=== PATIENT | female | born 1985 | race African-American/Black ===

== ENCOUNTER 2016-08-06 11:37 | Emergency (ER) | payer OTHER ==
[~2016-08-06] VITALS: Ht 170.2 cm; Wt 105.0 kg
[~2016-08-06 11:37] MED LIST: ANUCORT-HC25 MG RE; CIPRO500 MG OR; ERY-TAB333 MG OR; FIORICET PO; LIDOCAINE VISC20 ML EX; LORTAB 5 OR; MULTIVITAMI1 OR; NAPROSYN500 MG OR; NO MEDS; PRENATA3 PO
[2016-08-06] MEDS ORDERED: OB COMPLETE/DHA PO (11:50)
[2016-08-06 13:03] LABS: HEMATOCRIT 38.4 % (37.0-47.0); HEMOGLOBIN 13.4 g/dl (12.0-16.0); IMMATURE GRANULOCYTES 0.3 % (0.0-1.0); MEAN CELL VOLUME 90.1 fL CALC (80.0-100.0); MEAN CORPUSCULAR HGB 31.5 pG CALC (26.0-32.0); MEAN CORPUSCULAR HGB CONC 34.9 g/L CALC (32.0-36.0); NEUT# 5.1 thou/uL (2.00-7.15); RED BLOOD COUNT 4.26 mill/uL (4.20-5.60)
[2016-08-06 13:21] LABS: ALBUMIN 4.4 g/dL (3.2-5.0); ALKALINE PHOSPHATASE 74 u/l (38-126); ANION GAP 16 (6-22 (CALC)); BILIRUBIN, TOTAL 1.2 mg/dL (0.0-1.4); BUN 7 mg/dL (7-17); BUN/CREATININE RATIO 11 (12-20 (CALC)); CALCIUM 9.2 mg/dL (8.4-10.2); CARBON DIOXIDE 22 mmol/l (22-30); CHLORIDE 101 mmol/l (95-108); CREATININE 0.6 mg/dL (0.5-1.0); GFR > 60 ML/MIN (>=60 (CALC)); GFR FOR AFR.AMER. > 60 ML/MIN (>=60 (CALC)); GLUCOSE 80 mg/dL (65-105); POTASSIUM 3.6 mmol/l (3.5-5.1); SGOT/AST 44 u/l (14-36); SGPT/ALT 69 u/l (9-52); SODIUM 135 mmol/l (137-146); TOTAL PROTEIN 7.6 g/dL (6.3-8.2)
[2016-08-06] MEDS ORDERED: ZOFRAN ODT4 MG PO (13:38)
[2016-08-06 14:53] VITALS: BP 111/69
== END 2016-08-06 14:53 | disposition home or self-care (01) | DRG 781 ==
LOC: ED 11:37
PROVIDERS: Emergency Medicine
DX: O21.0 Mild hyperemesis gravidarum (principal); Z3A.00 Weeks of gestation of pregnancy not specified

== ENCOUNTER 2017-02-14 10:25 | Observation (INO) | payer MEDICAID ==
[~2017-02-14] VITALS: Ht 167.6 cm; Wt 95.3 kg
[2017-02-14] VITALS (13 sets, daily range): BP systolic 98–142; BP diastolic 60–83
--- NOTE | 2017-02-14 09:55 | NUR ---
PATIENT TO UNIT FROM HOME VIA ER REGISTRATION, UNACCOMPANIED. WEIGHT AND HEIGHT OBTAINED. ESCORTED TO ROOM 253. CLEAN CATCH SPECIMEN OF URINE EXPLAINED AND OBTAINED. EFM COMMENCED. GIVES HISTORY IN PART A. DENIES LEAKING OF AMNIOTIC FLUID AND VAGINAL BLEEDING. MD ON UNIT NOTIFIED OF PATIENTS ARRIVAL.
[~2017-02-14 10:25] MED LIST changes: +OB COMPLETE/DHA PO; +ZOFRAN ODT4 MG PO
[2017-02-14 10:28] LABS: URINE BILIRUBIN - DIPSTICK NEGATIVE (NEGATIVE); URINE BLOOD DIPSTICK NEGATIVE (NEGATIVE); URINE COLOR YELLOW; URINE GLUCOSE - DIPSTICK NEGATIVE (NEGATIVE); URINE KETONE TRACE mg/dL (NEGATIVE); URINE LEUK ESTERASE NEGATIVE (NEGATIVE); URINE NITRITE - DIPSTICK NEGATIVE (Negative); URINE PROTEIN - DIPSTICK NEGATIVE (NEG-TRACE); URINE UROBILINOGEN - DIPSTICK 0.2 E.U./dL (0.2)
[2017-02-14 10:33] LABS: BARBITURATES NEGATIVE (NEGATIVE); COCAINE NEGATIVE (NEGATIVE); METHADONE NEGATIVE (NEGATIVE); OXCYCODONE NEGATIVE (NEGATIVE); TETRAHYDROCANNABIONOL NEGATIVE (NEGATIVE); TRICYLIC ANTIDEPRESSANTS NEGATIVE (NEGATIVE); URINE CLARITY CLEAR
--- NOTE | 2017-02-14 10:35 | NUR ---
SVE DONE BY DR MISHRA CHARTED. NEW ORDERS RECEIVED TO BE COMMENCED.
[2017-02-14] MEDS ORDERED: VALTREX500 MG PO (11:23)
--- NOTE | 2017-02-14 11:50 | NUR ---
IV ACCESS GAINED IN LT HAND. BLOOD DRAWN FOR LABS ORDERED.
[2017-02-14 12:35] LABS: HEMATOCRIT 37.4 % (37.0-47.0); HEMOGLOBIN 12.9 g/dl (12.0-16.0); IMMATURE GRANULOCYTES 0.3 % (0.0-1.0); MEAN CELL VOLUME 90.8 fL CALC (80.0-100.0); MEAN CORPUSCULAR HGB 31.3 pG CALC (26.0-32.0); MEAN CORPUSCULAR HGB CONC 34.5 g/L CALC (32.0-36.0); NEUT# 4.44 thou/uL (2.00-7.15); RED BLOOD COUNT 4.12 mill/uL (4.20-5.60); RED CELL DISTRI WIDTH 13.1 % (11.5-15.5)
[2017-02-14 12:59] LABS: ALKALINE PHOSPHATASE 313 u/l (38-126); ANION GAP 16 (6-22 (CALC)); BILIRUBIN, TOTAL 1.2 mg/dL (0.0-1.4); BUN 4 mg/dL (7-17); BUN/CREATININE RATIO 7 (12-20 (CALC)); CALCIUM 9.6 mg/dL (8.4-10.2); CARBON DIOXIDE 17 mmol/l (22-30); CHLORIDE 109 mmol/l (95-108); CREATININE 0.6 mg/dL (0.5-1.0); GFR > 60 ML/MIN (>=60 (CALC)); GFR FOR AFR.AMER. > 60 ML/MIN (>=60 (CALC)); GLUCOSE 73 mg/dL (65-105); POTASSIUM 4.2 mmol/l (3.5-5.1); SGOT/AST 37 u/l (14-36); SGPT/ALT 43 u/l (9-52); SODIUM 138 mmol/l (137-146); TOTAL PROTEIN 7.3 g/dL (6.3-8.2)
--- NOTE | 2017-02-14 13:17 | NUR ---
BACK TO BED. EFM RECOMMENCED.
--- NOTE | 2017-02-14 14:12 | NUR ---
OFF MONITOR TO AMBULATE
--- NOTE | 2017-02-14 15:10 | NUR ---
US REPORT FROM 08/10/16 SEEN ON CHART WITH [facility] OF 03/04/17 AT [address] MISHRA IN OFFICE MADE AWARE OF SAME. WILL COME TO SEE PATIENT.
--- NOTE | 2017-02-14 16:35 | NUR ---
ambulating in hallway. no concerns.
--- NOTE | 2017-02-14 18:55 | NUR ---
DR MISHRA HERE. SVE SAME LAST. NEW ORDERS RECEIVED. PATIENT TOLERATING LABOR. END OF SHIFT REPORT READY.
--- NOTE | 2017-02-14 19:15 | NUR ---
INTRODUCED SELF TO PT. ASSESSMENT COMPLETED- WNL. PT RESTING IN BED. CHEERFUL AND TALKATIVE. SIGNIFICANT OTHER AT BEDSIDE. PT REQUESTING FOOD. DR. MISHRA STATES THAT PT COULD EAT TONIGHT. CLEAR LIQUIDS PROVIDED WILL ASSESS CONTRACTIONS FREQUENCY TO SEE IF CAN PROVIDE REGULAR FOOD. PT DENIES ANY NEEDS. ENCOURAGED PT TO CALL WITH ANY NEEDS OR CONCERNS.
--- NOTE | 2017-02-14 20:02 | NUR ---
REGULAR MEAL TRAY PROVIDED. PT WATCHING TELEVISION. CONTRACTIONS PALPATE MODERATE, BUT ARE IRREGULAR. VISTARIL PROVIDED PER ORDERS. PT GIVEN BLANKET. PT DENIES ANY OTHER NEEDS. ENCOURAGED PT TO CALL WITH ANY NEEDS OR CONCERNS.
--- NOTE | 2017-02-14 21:08 | NUR ---
PT RESTING QUIETLY IN BED. PT OOB TO BR TO VOID. THEN TALKING ON PHONE WITH SIGNIFICANT OTHER. PT STATES WHEN CONTRACTONS COME THEY ARE STRONG. PALPATE MODERATE. EFM DISCONTINUED FOR INTERMITTENT MONITORING PER ORDERS. EFM REACTIVE. ENCOURAGED PT TO CALL IF CONTRACTIONS GET CLOSER AND STRONGER OR IF WATER BREAKS. WILL CONTINUE TO MONITOR.
--- NOTE | 2017-02-15 | NUR ---
PT RESTING QUIETLY IN BED WITH EYES CLOSED. EFM APPLIED. PT DENIES ANY NEEDS. ENCOURAGED PT TO CALL WITH NEEDS.
[2017-02-15 00:30] VITALS: BP 121/64
--- NOTE | 2017-02-15 04:38 | NUR ---
PT RESTING QUIETLY IN BED. EFM APPLIED. PT STATES ONLY HAD TWO CONTRACTONS WHILE I WAS GONE. TOOTH BRUSH AND TOOTH PASTE GIVEN PER PT REQEUST. NO OTHER NEEDS EXPRESSED. ENCOURAGED PT TO CALL WITH ANY NEEDS OR CONCERNS.
[2017-02-15 04:57] VITALS: BP 108/64
--- NOTE | 2017-02-15 07:00 | NUR ---
END OF SHIFT REPORT RECEIVED FORM SADIE BELTRÁN.
--- NOTE | 2017-02-15 07:05 | NUR ---
COMPLAINS OF OCCASIONAL CONTRACTIONS. RATES THEM MILD. SAME PALPATE MILD. SCANT VAGINAL SPOTTING. MOVEMENTS APPRECIATED BY PATIENT.
[2017-02-15 07:15] VITALS: BP 118/76
--- NOTE | 2017-02-15 08:05 | NUR ---
Discharge instructions given. Patient verbalizes understanding of same. Discharged in stable condition via Ambulatory to Home with family. All belongings sent with pt. WILL KEEP APPT SCHEDULED IN ONE WEEK IF UNDELIVERED OR RETURN DISCUSSED PER DISCHARGE INSTRUCTIONS.
== END 2017-02-15 08:05 | disposition home or self-care (01) | DRG 780 ==
LOC: OB 10:25 → OBOP 10:25 → OB 10:35 → EDSTATUS 10:46 → OB 02-15 08:05
PROVIDERS: ADMIT Obstetrics & Gynecology; ATTEND Obstetrics & Gynecology
DX: O47.1 False labor at or after 37 completed weeks of gestation (principal); O98.313 Other infections with a predominantly sexual mode of transmission complicating pregnancy, third trimester; O99.333 Smoking (tobacco) complicating pregnancy, third trimester; F17.210 Nicotine dependence, cigarettes, uncomplicated; A60.00 Herpesviral infection of urogenital system, unspecified; Z3A.38 38 weeks gestation of pregnancy
CPT/HCPCS: G0378

== ENCOUNTER 2017-02-20 18:05 | Observation (INO) | payer MEDICAID ==
[~2017-02-20] VITALS: Ht 167.6 cm; Wt 98.8 kg
[~2017-02-20 18:05] MED LIST changes: +VALTREX500 MG PO
[2017-02-20 18:30] LABS: URINE BILIRUBIN - DIPSTICK NEGATIVE (NEGATIVE); URINE BLOOD DIPSTICK NEGATIVE (NEGATIVE); URINE COLOR YELLOW; URINE GLUCOSE - DIPSTICK NEGATIVE (NEGATIVE); URINE KETONE NEGATIVE (NEGATIVE); URINE LEUK ESTERASE TRACE (NEGATIVE); URINE NITRITE - DIPSTICK NEGATIVE (Negative); URINE PROTEIN - DIPSTICK NEGATIVE (NEG-TRACE); URINE UROBILINOGEN - DIPSTICK 0.2 E.U./dL (0.2)
[2017-02-20 18:31] LABS: URINE CLARITY CLEAR
[2017-02-20 18:34] LABS: BARBITURATES NEGATIVE (NEGATIVE); COCAINE NEGATIVE (NEGATIVE); METHADONE NEGATIVE (NEGATIVE); OXCYCODONE NEGATIVE (NEGATIVE); TETRAHYDROCANNABIONOL NEGATIVE (NEGATIVE); TRICYLIC ANTIDEPRESSANTS NEGATIVE (NEGATIVE)
[2017-02-20 18:45] VITALS: BP 114/72
[2017-02-20] MEDS ORDERED: PRE-NATAL PO (18:58)
[2017-02-21 00:30] VITALS: BP 131/81
[2017-02-21 07:00] VITALS: BP 135/77
[2017-02-21 07:44] VITALS: BP 106/58
[2017-02-21 11:32] VITALS: BP 133/78
== END 2017-02-21 11:57 | disposition home or self-care (01) | DRG 781 ==
LOC: OB 18:05 → OBOP 18:05 → EDSTATUS 18:09 → OBOP 19:29 → OB 19:30
PROVIDERS: ADMIT Obstetrics & Gynecology; ATTEND Obstetrics & Gynecology
DX: O26.893 Other specified pregnancy related conditions, third trimester (principal); M54.9 Dorsalgia, unspecified; Z3A.39 39 weeks gestation of pregnancy
CPT/HCPCS: G0378

== ENCOUNTER 2017-02-25 08:14 | Inpatient (IN) | payer MEDICAID ==
[~2017-02-25] VITALS: Ht 167.6 cm; Wt 93.1 kg
[2017-02-25] VITALS (9 sets, daily range): BP systolic 116–151; BP diastolic 63–88
[2017-02-25 08:10] LABS: URINE BILIRUBIN - DIPSTICK NEGATIVE (NEGATIVE); URINE COLOR YELLOW; URINE GLUCOSE - DIPSTICK NEGATIVE (NEGATIVE); URINE KETONE NEGATIVE (NEGATIVE); URINE LEUK ESTERASE NEGATIVE (NEGATIVE); URINE NITRITE - DIPSTICK NEGATIVE (Negative); URINE PROTEIN - DIPSTICK NEGATIVE (NEG-TRACE); URINE SPECIFIC GRAVITY <=1.005; URINE UROBILINOGEN - DIPSTICK 0.2 E.U./dL (0.2)
[2017-02-25 08:13] LABS: URINE BLOOD DIPSTICK NEGATIVE (NEGATIVE); URINE CLARITY CLEAR
[2017-02-25 08:14] LABS: BARBITURATES NEGATIVE (NEGATIVE); COCAINE NEGATIVE (NEGATIVE); METHADONE NEGATIVE (NEGATIVE); OXCYCODONE NEGATIVE (NEGATIVE); TETRAHYDROCANNABIONOL NEGATIVE (NEGATIVE); TRICYLIC ANTIDEPRESSANTS NEGATIVE (NEGATIVE)
[~2017-02-25 08:14] MED LIST changes: +PRE-NATAL PO
[2017-02-25 09:08] LABS: HEMATOCRIT 36.2 % (37.0-47.0); HEMOGLOBIN 12.4 g/dl (12.0-16.0); IMMATURE GRANULOCYTES 0.4 % (0.0-1.0); MEAN CELL VOLUME 92.6 fL CALC (80.0-100.0); MEAN CORPUSCULAR HGB 31.7 pG CALC (26.0-32.0); MEAN CORPUSCULAR HGB CONC 34.3 g/L CALC (32.0-36.0); NEUT# 3.75 thou/uL (2.00-7.15); RED BLOOD COUNT 3.91 mill/uL (4.20-5.60)
[2017-02-25 09:17] LABS: ALBUMIN 3.5 g/dL (3.2-5.0); ALKALINE PHOSPHATASE 326 u/l (38-126); ANION GAP 14 (6-22 (CALC)); BILIRUBIN, TOTAL 0.7 mg/dL (0.0-1.4); BUN 6 mg/dL (7-17); BUN/CREATININE RATIO 8 (12-20 (CALC)); CALCIUM 9.3 mg/dL (8.4-10.2); CARBON DIOXIDE 19 mmol/l (22-30); CHLORIDE 111 mmol/l (95-108); CREATININE 0.7 mg/dL (0.5-1.0); GFR > 60 ML/MIN (>=60 (CALC)); GFR FOR AFR.AMER. > 60 ML/MIN (>=60 (CALC)); GLUCOSE 76 mg/dL (65-105); POTASSIUM 4.1 mmol/l (3.5-5.1); SGOT/AST 31 u/l (14-36); SGPT/ALT 48 u/l (9-52); SODIUM 139 mmol/l (137-146); TOTAL PROTEIN 6.6 g/dL (6.3-8.2)
[2017-02-26] VITALS (9 sets, daily range): BP systolic 111–134; BP diastolic 40–82
[2017-02-26 06:08] LABS: HEMOGLOBIN 11.9 g/dl (12.0-16.0); IMMATURE GRANULOCYTES 0.3 % (0.0-1.0); MEAN CELL VOLUME 91.4 fL CALC (80.0-100.0); NEUT# 5.67 thou/uL (2.00-7.15); RED BLOOD COUNT 3.72 mill/uL (4.20-5.60); RED CELL DISTRI WIDTH 12.9 % (11.5-15.5)
[2017-02-27 05:19] VITALS: BP 11/52
[2017-02-27 07:10] VITALS: BP 118/69
[2017-02-27] MEDS ORDERED: LORTAB 7.57.5 MG PO (09:39)
[2017-02-27] MEDS ORDERED: IBUPROFEN600 MG PO (09:40)
== END 2017-02-27 18:42 | disposition home or self-care (01) | DRG 767 ==
LOC: OBOP 08:14 → OB 08:14 → OBOP 08:16 → OB 08:17
PROVIDERS: ADMIT Obstetrics & Gynecology; ATTEND Obstetrics & Gynecology
PROC: 10E0XZZ Delivery of Products of Conception, External Approach (ICD-10-PCS; principal; 2017-02-25)
PROC: 10907ZC Drainage of Amniotic Fluid, Therapeutic from Products of Conception, Via Natural or Artificial Opening (ICD-10-PCS; 2017-02-25)
PROC: 0UB70ZZ Excision of Bilateral Fallopian Tubes, Open Approach (ICD-10-PCS; 2017-02-26)
DX: O98.32 Other infections with a predominantly sexual mode of transmission complicating childbirth (principal); A60.00 Herpesviral infection of urogenital system, unspecified; O99.334 Smoking (tobacco) complicating childbirth; F17.210 Nicotine dependence, cigarettes, uncomplicated; Z3A.39 39 weeks gestation of pregnancy; Z37.0 Single live birth
CPT/HCPCS: J2710

== ENCOUNTER 2021-09-25 05:20 | Emergency (ER) | payer OTHER ==
[~2021-09-25] VITALS: Ht 170.2 cm; Wt 79.5 kg
[~2021-09-25 05:20] MED LIST changes: +IBUPROFEN600 MG PO; +LORTAB 7.57.5 MG PO
[2021-09-25 05:30] VITALS: BP 114/70
[2021-09-25] MEDS ORDERED: METRONIDAZOLE500 MG PO (05:59)
[2021-09-25 06:08] LABS: HEMATOCRIT 37.7 % (37.0-47.0); HEMOGLOBIN 12.2 g/dl (12.0-16.0); IMMATURE GRANULOCYTES 0.2 % (0.0-5.0); MEAN CELL VOLUME 95.9 fL CALC (80.0-100.0); MEAN CORPUSCULAR HGB CONC 32.4 g/dL CAL (32.0-36.0); NEUT# 3.76 thou/uL (2.00-7.15); RED BLOOD COUNT 3.93 mill/uL (4.20-5.60); RED CELL DISTRI WIDTH 12.4 % (11.5-15.5)
[2021-09-25 06:12] VITALS: BP 119/66
[2021-09-25 06:15] VITALS: BP 110/58
[2021-09-25 06:24] LABS: ALBUMIN 4.2 g/dL (3.2-5.0); ALKALINE PHOSPHATASE 51 u/l (38-126); BUN 9 mg/dL (7-17); BUN/CREATININE RATIO 12 (12-20 (CALC)); CHLORIDE 104 mmol/l (95-108); CREATININE 0.8 mg/dL (0.5-1.0); GFR FOR AFR.AMER. > 60 ML/MIN (>=60 (CALC)); GFR OTHER RACES > 60 ML/MIN (>=60 (CALC)); SGOT/AST 21 u/l (14-36); SODIUM 136 mmol/l (137-146); TOTAL PROTEIN 7.4 g/dL (6.3-8.2)
[2021-09-25 06:26] LABS: ANION GAP 13 (6-22 (CALC)); BILIRUBIN, TOTAL 0.5 mg/dL (0.0-1.4); CARBON DIOXIDE 23 mmol/l (22-30)
[2021-09-25 06:30] VITALS: BP 111/58
[2021-09-25 06:35] LABS: MYOGLOBIN 31 ng/mL (0 - 62)
[2021-09-25 06:37] LABS: URINE BILIRUBIN - DIPSTICK NEGATIVE (NEGATIVE); URINE BLOOD DIPSTICK TRACE-INTACT (NEGATIVE); URINE COLOR YELLOW; URINE GLUCOSE - DIPSTICK NEGATIVE (NEGATIVE); URINE KETONE NEGATIVE (NEGATIVE); URINE LEUK ESTERASE TRACE (NEGATIVE); URINE PH 6.5 (4.5-8.0); URINE PROTEIN - DIPSTICK NEGATIVE (NEG-TRACE); URINE UROBILINOGEN - DIPSTICK 0.2 E.U./dL (0.2)
[2021-09-25 06:41] LABS: URINE NITRITE - DIPSTICK NEGATIVE (Negative)
[2021-09-25 06:45] VITALS: BP 110/57
[2021-09-25] MEDS ORDERED: FIORICET PO (06:46)
[2021-09-25] MEDS ORDERED: PAXLOVID PO (06:46)
[2021-09-25 07:22] VITALS: BP 110/57
== END 2021-09-25 07:25 | disposition home or self-care (01) ==
LOC: ED 05:20
PROVIDERS: Emergency Medicine
DX: U07.1 COVID-19 (principal); M79.10 Myalgia, unspecified site; G43.909 Migraine, unspecified, not intractable, without status migrainosus; F17.200 Nicotine dependence, unspecified, uncomplicated